=== PATIENT | male | born 1995 | race African-American/Black ===

== ENCOUNTER 2020-11-02 10:06 | Emergency (ER) | payer OTHER, SELFPAY ==
--- NOTE | ~2020-11-02 | US_ITS ---
EXAMINATION: US scrotum doppler DATE: 11/02/2020 11:57 INDICATION: Left testicular pain. TECHNIQUE: Grayscale and Doppler ultrasound images of the testes were obtained. COMPARISON: CT abdomen and pelvis 11/02/2020 FINDINGS: The right testis measures 4.5 x 3.2 x 2.0 cm. The left testis measures 3.9 x 3.3 x 2.1 cm. There is normal vascular flow to both testes. The right epididymis is normal with normal vascular jing w. The left epididymis is normal with normal vascular flow. There is no hydrocele. There are bilatera l varicoceles. IMPRESSION: 1. Bilateral varicoceles. Reviewed, dictated and finalized at location A. RAM MANAGER RN IMPRESSION: 1. Bilateral varicoceles.
--- NOTE | ~2020-11-02 | XR_ITS ---
EXAMINATION: XR abdomen/kub 1V DATE: 11/02/2020 11:10 INDICATION: Flank pain. TECHNIQUE: A supine view of the abdomen on 2 radiographs was obtained. COMPARISON: CT abdomen and pelvis 11/02/2020 FINDINGS: There are no dilated loops of bowel. There is a large volume of stool in the colon. There i s no urolithiasis. IMPRESSION: 1. No urolithiasis. Reviewed, dictated and finalized at location A. NT ACQUISITION PROJECT MANAGER IMPRESSION: 1. No urolithiasis.
--- NOTE | ~2020-11-02 | CT_ITS ---
EXAMINATION: CT abdomen pelvis wo con DATE: 11/02/2020 10:57 INDICATION: Flank pain. TECHNIQUE: Computed tomography (CT) of the abdomen and pelvis was performed without intravenous contr ast. Automated exposure control and iterative reconstruction technique were employed. The dose-length product was 409.89 mGy-cm. COMPARISON: None. FINDINGS: The visualized portions of the lung bases are clear without pneumonia or pleural effusion. The heart size is normal. No pericardial effusion. The liver, gallbladder, spleen, pancreas, adrenal glands, and kidneys are normal. There is no urolithiasis. There are no dilated loops of bowel. The ap pendix is not visualized. There are no pathologically enlarged lymph nodes. There is no free intraper itoneal fluid. There is mild lumbar spondylosis. IMPRESSION: 1. No urolithiasis. Reviewed, dictated and finalized at location A. ERLESS GRINDER SET UP OPERATOR IMPRESSION: 1. No urolithiasis.
[2020-11-02 10:12] VITALS: BP 149/41; PULSE 81; RESP 18; TEMP 36.4; O2SAT 100
[2020-11-02] MEDS: SODIUM CHLORIDE 0.9% IV 1,000 ML 999 ML IV CONT (10:38)
[2020-11-02 10:46] LABS: Add Urine Microscopic? YES; Appearance Urine Clear (Clear); Bilirubin Urine Negative (Negative); Blood Urine Negative (Negative); Color Urine Straw (Yellow); Glucose Urine UA Negative (Negative); Ketones Urine Negative (Negative); Leukocyte Esterase Ur Negative LEU/UL (Negative); Nitrate Urine Negative (Negative); Protein Urine Negative (Negative); Specific Grav Ur 1.017 (1.001-1.035); Urobilinogen Urine Negative mg/dL (<2.0); WBC Urine 0-3 /hpf
[2020-11-02 10:47] LABS: Basophils Percent Auto 0.5 % (0.2-1.2); Eosinophils Absolute Auto 0.2 K/mm3 (0-0.3); Eosinophils Percent Auto 2.7 % (0-4.4); Hematocrit 45.8 % (42.0-52.0); Hemoglobin 15.3 g/dL (14.0-18.0); Immature Granulocyte Absolute 0.01 K/mm3 (0.00-0.031); Immature Granulocyte Percent A 0.2 % (0-0.5); Lymphocytes Absolute Auto 1.98 K/mm3 (0.9-3.2); Mean Corpuscular HGB Conc 33.4 g/dl (32-36); Mean Corpuscular Hemoglobin 30.1 pg (26-34); Mean Corpuscular Volume 90.2 fl (80-100); Mean Platelet Volume 11.9 fl (7.4-10.4); Monocytes Absolute Auto 0.7 K/mm3 (0.1-0.6); Monocytes Percent Auto 10.8 % (2.6-8.5); Neutrophils Absolute Auto 3.5 K/mm3 (1.3-6.7); Neutrophils Percent Auto 54.8 % (45.5-73.1); Platelet Count Result 143 k/mm3 (150-375); Red Blood Count 5.08 M/mm3 (4.6-6.20); White Blood Count 6.4 K/mm3 (4.5-10.0)
--- NOTE | 2020-11-02 11:10 | ED.ABDPAIN ---
HPI - Abdominal Pain General Chief Complaint: Urogenital-Male <Ignacio Robertson JeisonYURIDIA - Last Filed: 11/02/20 12:51> Stated Complaint: left testicle pain, back pain <Ignacio Mchugh PA-C Ronna Last Filed: 11/02/20 12:51> Time Seen by Provider: 11/02/20 10:20 <Ignacio Mchugh PA-C - Last Filed: 11/02/20 12:51> Source: patient <Ignacio Robertson JeisonYURIDIA Ronna Last Filed: 11/02/20 12:51> Mode of arrival: ambulatory <Ignacio Mchugh PA-C Ronna Last Filed: 11/02/20 12:51> Limitations: no limitations <Ignacio Mchugh PA-C Ronna Filed: 11/02/20 12:51> History of Present Illness HPI narrative: Patient is a 25-year-old male who presents to emergency department for evaluation of left testicle pain and flank pain. Patient notes that the pain is intermittent nothing is made it better or worse patient on arrival does not appear uncomfortable or distressed has not taken anything for his symptoms <Ignacio Mchugh PA-C - Last Filed: 11/02/20 12:51> Related Data Allergies/Adverse Reactions: Allergies Allergy/AdvReac Type Severity Reaction Status Date / Time No Known Allergies Allergy Verified 11/02/20 10:41 <Ignacio Mchugh PA-C Ronna Last Filed: 11/02/20 12:51> Review of Systems Review of Systems: All systems reviewed & are unremarkable except as noted in HPI and below <YURIDIA Horne Last Filed: 11/02/20 12:51> Exam Narrative: Exam Narrative: GENERAL: Well-appearing, well-nourished, and in no acute distress. HEAD: Normocephalic, atraumatic. EYES: PERRLA and EOMI. ENT: Nares clear, no rhinorrhea or epistaxis. Mucous membranes moist. NECK: Supple. No adenopathy or masses. No carotid bruits or JVD CHEST: Clear to auscultation. No respiratory distress. No wheezes rales or rhonchi HEART: Regular rate and rhythm. No murmur heard. Normal peripheral pulses. ABDOMEN: Soft, nontender, nondistended MALE GENITALIA: Normal exam no deformities EXTREMITIES: Normal range of motion. No edema. SKIN: Warm, dry, no rash. NEURO: No focal deficits. Alert and oriented x3. PSYCH: Normal mood and affect. <YURIDIA Horne Last Filed: 11/02/20 12:51> Course Course Emergency Course: Patient in the room at this time in no distress aware of case findings treatment plan diagnosis agreeing to follow with urology and primary care no high risk changes in the blood work or imaging to attribute to his flank pain and testicular pain <Ignacio Mchugh PA-C - Last Filed: 11/02/20 12:51> Vital Signs Vital signs: Vital Signs Temperature 97.5 F L 11/02/20 10:12 Pulse Rate 81 11/02/20 10:12 Respiratory Rate 18 11/02/20 10:12 Blood Pressure 149/41 H 11/02/20 10:12 Pulse Oximetry 100 11/02/20 10:12 Temperature 97.5 F L 11/02/20 10:12 Pulse Rate 75 11/02/20 13:06 Respiratory Rate 17 11/02/20 13:06 Blood Pressure 136/75 11/02/20 13:06 Pulse Oximetry 99 11/02/20 13:06 <Ignacio Mchugh PA-C - Last Filed: 11/02/20 12:51> Vital Signs Temperature 97.5 F L 11/02/20 10:12 Pulse Rate 81 11/02/20 10:12 Respiratory Rate 18 11/02/20 10:12 Blood Pressure 149/41 H 11/02/20 10:12 Pulse Oximetry 100 11/02/20 10:12 Temperature 97.5 F L 11/02/20 10:12 Pulse Rate 75 11/02/20 13:06 Respiratory Rate 17 11/02/20 13:06 Blood Pressure 136/75 11/02/20 13:06 Pulse Oximetry 99 11/02/20 13:06 <Lorri Alvarez MD - Last Filed: 11/02/20 17:00> MDM - Abdominal Pain MDM Narrative Medical decision making narrative: Patient in the room no distress aware of case findings treatment plan diagnosis agreeing to follow-up as directed or to return if symptoms worsen or concerns patient given urology primary care follow-ups and will be treated with medications with GC chlamydia pending <YURIDIA Horne Last Filed: 11/02/20 12:51> Lab Data Result diagrams: : 11/02/20 10:39 11/02/20 11:15 <Ignacio Kaminski
[2020-11-02 11:31] LABS: Anion Gap 6 mmol/L (8-16); Blood Urea Nitrogen 15 mg/dL (9-20); Calcium 9.4 mg/dL (8.4-10.2); Carbon Dioxide 30 mmol/L (22-30); Chloride 104 mmol/L (98-107); Estimated CRCL calculation 101 ml/min; Estimated Glomerular Filt Rate > 60; Glucose 73 mg/dL (75-110); Potassium 4.4 mmol/L (3.4-5.0); Sodium 140 mmol/L (137-145)
[2020-11-02 13:06] VITALS: BP 136/75; PULSE 75; RESP 17; O2SAT 99
== END 2020-11-02 13:08 | disposition home or self-care (01) ==
PROVIDERS: Emergency Medicine Emergency Medical Services; Emergency Provider General Practice
DX: N50.812 Left testicular pain (principal); R10.9 Unspecified abdominal pain; I86.1 Scrotal varices
CPT/HCPCS: 36415; 74018; 74176; 76870; 80048; 81001; 85025; 87491; 87591; 93976; 96361; 96374; 99284; J0131; J7030